=== PATIENT | male | born 2000 | race Asian ===

== ENCOUNTER 2022-11-16 11:28 | Emergency (ER) | payer OTHER ==
[~2022-11-16] VITALS: Ht 175.3 cm; Wt 62.4 kg
--- NOTE | 2022-11-16 12:52 | NUR ---
CALL PLACED TO ANNE IN LAB WHO STATED LAB TEST ORDERED WRONG AND HE WILL CORRECT IT
[2022-11-16 16:38] VITALS: BP 116/76; PULSE 63; RESP 16; TEMP 97.5; O2SAT 98
== END 2022-11-16 17:08 | disposition home or self-care (01) ==
LOC: ER 11:30
DX: A15.0 Tuberculosis of lung (principal)
CPT/HCPCS: 36415; 71250; 86480; 99284